=== PATIENT | female | born 1950 ===

== ENCOUNTER 2020-02-01 14:03 | Outpatient (CLI) | payer MEDICARE, BC ==
--- NOTE | 2020-02-07 08:42 | Ultrasound Report ---
LIMITED ULTRASOUND OF RIGHT BREAST: 02/01/2020 CLINICAL: Palpable right breast lump. Comparison is made to exam dated: 02/01/2020 mammogram - [facility]. Color flow and real-time ultrasound of the right breast 9 o'clock region were performed. Diop scale images of the real-time examination were reviewed. No significant abnormalities were seen sonographically in the right breast. IMPRESSION: NEGATIVE There is no sonographic evidence of malignancy. A 1 year screening mammogram is recommended. This exam was interpreted at Station ID: [id number]. Electronically Signed By: Prashanth Cano M.D., jr/cathy:02/01/2020 16:00:42 Ultrasound BI-RADS: 1 Negative BI-RADS CATEGORY: (1) - 1 RECOMMENDATION: (ANNUAL) - Recommend routine annual screening mammography. [id number] 1 year screening LATERALITY: (B)
--- NOTE | 2020-02-07 08:42 | Mammography Report ---
BILATERAL DIGITAL DIAGNOSTIC MAMMOGRAM 3D/2D: 02/01/2020 CLINICAL: Palpable right breast lump. Personal history of right breast cancer, due for bilateral exam . Additional films were requested but not obtained. The tissue of both breasts is predominantly fatty. No significant masses, calcifications, or other findings are seen in either breast. IMPRESSION: INCOMPLETE: NEED PRIOR STUDIES FOR COMPARISON No suspicious finding or significant change. Ultrasound will be performed to evaluate the palpable re gion of concern. This exam was interpreted at Station ID: [id number]. NOTE: For mammograms, a report in lay terms will be sent to the patient. Approximately 15% of breast malignancies will not be visualized mammographically. In the management of a palpable breast mass, a negative mammogram must not discourage biopsy of a clinically suspicious lesion. Electronically Signed By: Prashanth Cano M.D. jr/:02/01/2020 15:53:45 ACR BI-RADS Category 0 Need prior studies for comparison [id number] PARENCHYMAL PATTERN: (F) - The breast(s) demonstrate(s) diffuse fatty replacement. BI-RADS CATEGORY: (0) - 0 Ultrasound [id number] Immediate follow-up LATERALITY: (B)
== END 2020-02-01 14:04 | disposition home or self-care (01) ==
LOC: DI 14:03
PROVIDERS: ATTEND Internal Medicine
DX: Z12.31 Encounter for screening mammogram for malignant neoplasm of breast (principal); N63.10 Unspecified lump in the right breast, unspecified quadrant; Z08 Encounter for follow-up examination after completed treatment for malignant neoplasm; Z85.3 Personal history of malignant neoplasm of breast
CPT/HCPCS: 76642; 77066

== ENCOUNTER 2020-05-29 10:26 | Outpatient (CLI) | payer MEDICARE, BC | END 2020-05-29 10:27 | disposition home or self-care (01) | LOC: DI 10:26 | PROVIDERS: ATTEND Internal Medicine | DX: I48.92 Unspecified atrial flutter (principal); I08.1 Rheumatic disorders of both mitral and tricuspid valves | CPT/HCPCS: 93306 ==

== ENCOUNTER 2020-06-06 09:11 | Outpatient (CLI) | payer MEDICARE, BC ==
--- NOTE | 2020-06-06 15:22 | Ultrasound Report ---
PROCEDURE: Abdomen Limited INDICATIONS: ELEVATED LFT'S TECHNIQUE: Real-time scanning was performed of the abdominal and retroperitoneal organs, with image documentatio n. COMPARISON: None. FINDINGS: Liver: Liver is normal in size and images mild steatosis. Gallbladder: Doppler demonstrate no stones. Wall thickness is within normal limits measuring 2.1 mm. Biliary ducts: Intrahepatic bile ducts are non-dilated. Extrahepatic bile duct caliber measures 1.9 mm. Normal is 6-7 mm or less in diameter, or 10 mm or less post-cholecystectomy. Pancreas: Visualized portions of the pancreas are sonographically normal. Kidneys: Right kidney measures 9.7 cm long. No hydronephrosis or nephrolithiasis. No solid masses. IVC: Intrahepatic inferior vena cava is patent. IMPRESSION: Hepatic steatosis without focal lesion. Reviewed by: Jessica Ellis MD on 06/06/2020 3:21 PM PST Approved by: Jessica Ellis MD on 06/06/2020 3:[address] [facility] Station ID: [id number]
== END 2020-06-06 09:12 | disposition home or self-care (01) ==
LOC: DI 09:11
PROVIDERS: ATTEND Internal Medicine
DX: R74.8 Abnormal levels of other serum enzymes (principal); K76.0 Fatty (change of) liver, not elsewhere classified

== ENCOUNTER 2020-09-27 16:22 | Outpatient (CLI) | payer MEDICARE, BC ==
--- NOTE | 2020-09-28 19:15 | Ultrasound Report ---
PROCEDURE: Head or Neck Soft Tissue INDICATIONS: THYROID NODULE TECHNIQUE: Real-time scanning was performed of the thyroid gland, with image documentation. COMPARISON: None FINDINGS: Right: Thyroid lobe measures 5.2 x 1.7 x 1.4 cm, and is homogenous in echotexture. Left: Thyroid lobe measures 5.5 x 1.9 x 2.2 cm, and is homogenous in echotexture. Isthmus: 9 mm thick. Nodule number: One Location: Isthmus inferiorly Size: 1.3 x 1.0 x 1.4 cm. Composition: Solid Echogenicity: Isoechoic Shape: wider than tall. Margins: Smooth Echogenic foci: None Total points: 3 ACR TI-RADS category: 3 Nodule number: Two Location: Left superior medial Size: 1.5 x 1.1 x 1.5 cm. Composition: Solid Echogenicity: Isoechoic Shape: wider than tall. Margins: smooth Echogenic foci: None Total points: 3 ACR TI-RADS category: 3 Nodule number: Three Location: Left mid Size: 1.5 x 1.3 x 1.5 cm. Composition: Solid Echogenicity: Markedly hypoechoic Shape: wider than tall. Margins: Smooth Echogenic foci: None Total points: 5 ACR TI-RADS category: 4 Nodule number: Four Location: Left inferior Size: 2.5 x 1.9 x 1.9 cm. Composition: Solid Echogenicity: Hypoechoic Shape: wider than tall. Margins: Smooth Echogenic foci: None Total points: 4 ACR TI-RADS category: 4 IMPRESSION: Multinodular goiter. 2 left-sided thyroid nodules meet criteria for fine needle aspiration as below. ACR TI-RADS definitions and recommendations: TI-RADS 1 (benign): 0 points. FNA not needed. TI-RADS 2 (not suspicious): 2 points. FNA not needed. TI-RADS 3 (mildly suspicious): 3 points. ? FNA if 2.5 cm or larger, follow up if 1.5 cm or larger (at 1, 3, and 5 years). TI-RADS 4 (moderately suspicious): 4-6 points. ? FNA if 1.5 cm or larger, follow up if 1 cm or larger (at 1, 2, 3, and 5 years). TI-RADS 5 (highly suspicious): 7 points or more. ? FNA if 1 cm or larger, follow up if 0.5 cm or larger (every year for 5 years). Reviewed by: Shayne Reardon DO on 09/28/2020 6:14 PM [facility] Approved by: Shayne Reardon DO on 09/28/2020 6:14 PM [facility] Station ID: [id number]
== END 2020-09-27 16:23 | disposition home or self-care (01) ==
LOC: DI 16:22
PROVIDERS: ATTEND Internal Medicine
DX: E04.2 Nontoxic multinodular goiter (principal)

== ENCOUNTER 2020-10-21 13:54 | Outpatient (CLI) | payer MEDICARE, BC ==
[~2020-10-21 13:54] MED LIST: BUFFERED LIDOCAINE 10 ML SYRINGE ONE
--- NOTE | 2020-10-21 16:42 | Ultrasound Report ---
PROCEDURE: FNA Bx w/US Gdn Ea Addl INDICATIONS: THYROID NODULES-FNA X2 TECHNIQUE: The indications, alternatives, benefits, risks, and complications of the procedure were explained to the patient. Written informed consent was obtained and placed in the chart. The area of interest wa s examined sonographically and a site was chosen for ultrasound guided percutaneous sampling. The sk in was prepared and draped in the usual fashion, and anesthetized with 1% lidocaine infiltrated from the skin down to the lesion. Multiple passes were then performed, [facility] A bandage was applied to the area of access at completion of t he study. COMPARISON: None. FINDINGS: Location(s) of lesion(s) sampled: Left mid thyroid lobe medial nodule [place]: 25 gauge hypodermic needles. Number of passes: 3 Medications: 1% lidocaine for local anaesthesia. Complications: None. IMPRESSION: Successful ultrasound-guided left thyroid lobe nodule fine needle aspiration, with cytology results p ending. Reviewed by: Prashanth Cano MD on 10/21/2020 4:41 PM PDT Approved by: Prashanth Cano MD on 10/21/2020 4:41 PM PDT Station ID: [id number]
--- NOTE | 2020-10-21 16:43 | Ultrasound Report ---
PROCEDURE: FNA Bx w/US Gnd 1st les INDICATIONS: TWO THYROID NODULES TECHNIQUE: The indications, alternatives, benefits, risks, and complications of the procedure were explained to the patient. Written informed consent was obtained and placed in the chart. The area of interest wa s examined sonographically and a site was chosen for ultrasound guided percutaneous sampling. The sk in was prepared and draped in the usual fashion, and anesthetized with 1% lidocaine infiltrated from the skin down to the lesion. Multiple passes were then performed, with contents emptied into an appr [facility] pathology specimen container. A bandage was applied to the area of access at completion of t he study. COMPARISON: None. FINDINGS: Location(s) of lesion(s) sampled: Superior left thyroid lobe nodule [place]: 25 gauge hypodermic needles. Number of passes: 3 Medications: 1% lidocaine for local anaesthesia. Complications: None. IMPRESSION: Successful ultrasound-guided superior left thyroid lobe nodule fine needle aspiration, with cytology results pending. Reviewed by: Prashanth Cano MD on 10/21/2020 4:41 PM PDT Approved by: Prashanth Cano MD on 10/21/2020 4:41 PM PDT Station ID: [id number]
[2020-10-21] MEDS ORDERED: BUFFERED LIDOCAINE 10 ML SYRINGE IU ONE (16:53)
== END 2020-10-21 13:55 | disposition home or self-care (01) ==
LOC: DI 13:54
PROVIDERS: ATTEND Internal Medicine
DX: E04.2 Nontoxic multinodular goiter (principal)
CPT/HCPCS: 10005; 10006

== ENCOUNTER 2021-11-14 08:00 | Outpatient (CLI) | payer MEDICARE, BC ==
[2021-11-14 16:11] LABS: BASOPHILS # (AUTO) 0.1 10^3/uL (0.0-0.1); BASOPHILS % (AUTO) 1.2 %; EOSINOPHILS # (AUTO) 0.1 10^3/uL (0.0-0.7); EOSINOPHILS % (AUTO) 2.2 %; HCT - HEMATOCRIT 42.7 % (37.0-47.0); HGB - HEMOGLOBIN 13.3 g/dL (12.0-16.0); LYMPHOCYTES # (AUTO) 2.3 10^3/uL (1.5-3.5); MEAN CORPUSCULAR HEMOGLOBIN 28.9 pg (27.0-31.0); MEAN CORPUSCULAR HGB CONC 31.1 g/dL (32.0-36.0); MEAN CORPUSCULAR VOLUME 92.6 fL (81.0-99.0); MEAN PLATELET VOLUME 12.2 fL (7.9-10.8); MONOCYTES # (AUTO) 0.7 10^3/uL (0.0-1.0); MONOCYTES % (AUTO) 12.2 %; NEUTROPHILS # (AUTO) 2.6 10^3/uL (1.5-6.6); NEUTROPHILS % (AUTO) 44.2 %; PLT - PLATELET COUNT 171 10^3/uL (130-450); RED BLOOD COUNT 4.61 10^6/uL (4.20-5.40); RED CELL DISTRIBUTION WIDTH 13.6 % (12.0-15.0); WHITE BLOOD COUNT 5.8 x10^3/uL (4.8-10.8)
[2021-11-14 16:24] LABS: ALBUMIN 3.9 g/dL (3.2-5.5); ALBUMIN/GLOBULIN RATIO 1.4 (1.0-2.2); ALKALINE PHOSPHATASE 69 IU/L (42-121); ALT ALANINE AMINOTRANSFERASE 31 IU/L (10-60); AST ASPARTATE AMINOTRANSFERASE 27 IU/L (10-42); BILIRUBIN,TOTAL 0.6 mg/dL (0.2-1.0); BUN - BLOOD UREA NITROGEN 13 mg/dL (6-20); CALCIUM 9.4 mg/dL (8.5-10.3); CARBON DIOXIDE - CO2 28 mmol/L (21-32); CHLORIDE 104 mmol/L (101-111); CHOLESTEROL 227 mg/dL; CREATININE 0.7 mg/dL (0.4-1.0); GFR - MDRD 83 (>89); GLUCOSE 83 mg/dL (70-100); HDL CHOLESTEROL 57 mg/dL; LDL CHOLESTEROL,CALCULATED 158 mg/dL; LDL/HDL RATIO 2.8 (<4.4); POTASSIUM 4.1 mmol/L (3.5-5.0); SODIUM 141 mmol/L (135-145); TOTAL PROTEIN 6.6 g/dL (6.7-8.2); TRIGLYCERIDES 61 mg/dL; URIC ACID 4.8 mg/dL (2.6-7.2); VLDL CHOLESTEROL 12 mg/dL
== END 2021-11-14 08:01 | disposition home or self-care (01) ==
LOC: LAB.R 08:00
PROVIDERS: ATTEND Internal Medicine
DX: Z00.00 Encounter for general adult medical examination without abnormal findings (principal); I48.92 Unspecified atrial flutter; R74.8 Abnormal levels of other serum enzymes; Z83.3 Family history of diabetes mellitus; K76.0 Fatty (change of) liver, not elsewhere classified; C50.919 Malignant neoplasm of unspecified site of unspecified female breast; E78.5 Hyperlipidemia, unspecified; I34.0 Nonrheumatic mitral (valve) insufficiency; M85.80 Other specified disorders of bone density and structure, unspecified site
CPT/HCPCS: 80053; 80061; 83036; 83721; 84443; 84550; 85025

== ENCOUNTER 2022-10-13 15:27 | Outpatient (CLI) | payer MEDICARE, BC | END 2022-10-13 15:28 | disposition home or self-care (01) | LOC: LAB 15:27 | PROVIDERS: ATTEND Internal Medicine | DX: Z01.818 Encounter for other preprocedural examination (principal) | CPT/HCPCS: 87640 ==

== ENCOUNTER 2023-03-03 12:48 | Outpatient (CLI) | payer MEDICARE, BC ==
--- NOTE | 2023-03-03 18:57 | Ultrasound Report ---
PROCEDURE: Head or Neck Soft Tissue INDICATIONS: THYROID NODULE TECHNIQUE: Real-time scanning was performed of the thyroid gland, with image documentation. COMPARISON: 09/27/2020 FINDINGS: Right: Thyroid lobe measures 4.9 x 2.0 x 1.3 cm, and is relatively homogeneous in echotexture. Left: Thyroid lobe measures 5.2 x 2.1 x 2.0 cm, and contains multiple nodules Isthmus: 4.3 mm thick. Nodule number: 1 Location: Inferior isthmus Size: 1.6 x 1.2 x 1.4 cm, previously 1.3 x 1.0 x 1.4 cm Composition: Solid (2 points). Echogenicity: Isoechoic (1 point). Shape: wider than tall (0 points).. Margins: Smooth (0 points). Echogenic foci: None (0 points). Total points: 3 ACR TI-RADS category: TI-RADS 3: Mildly suspicious. Nodule number: 2 Location: Left upper pole Size: 2.2 x 1.1 x 1.6 cm, previously 1.5 x 1.1 x 1.5 cm. Composition: Solid (2 points). Echogenicity: Isoechoic (1 point). Shape: wider than tall (0 points).. Margins: Smooth (0 points). Echogenic foci: None (0 points). Total points: 3 ACR TI-RADS category: TI-RADS 3: Mildly suspicious. Nodule number: 3 Location: Left middle pole Size: 0.9 x 0.8 x 0.8 cm, previously 1.5 x 1.3 x 1.5 cm. Composition: Solid (2 points). Echogenicity: Very hypoechoic (3 points). Shape: wider than tall (0 points).. Margins: Smooth (0 points). Echogenic foci: Macrocalcification (1 point). Total points: 6 ACR TI-RADS category: TI-RADS 4: Moderately suspicious. Nodule number: 4 Location: Left lower pole Size: 2.7 x 1.9 x 2.0 cm, previously 2.5 x 1.9 x 1.9 cm. Composition: Solid (2 points). Echogenicity: Hypoechoic (2 points). Shape: wider than tall (0 points). Margins: Smooth (0 points). Echogenic foci: None (0 points). Total points: 4 ACR TI-RADS category: TI-RADS 4: Moderately suspicious. IMPRESSION: Multinodular thyroid. Based on the recommendations below, currently, nodule 4 satisfies criteria for ultrasound-guided FNA for tissue diagnosis. It is noted that the patient previously unde rwent ultrasound-guided FNA of this lesion on 10/21/2020. If there is a definite diagnosis of benign ti ssue, it does not require biopsy. If last biopsy was nondiagnostic, consider repeat FNA. ACR TI-RADS definitions and recommendations: TI-RADS 1 (benign): 0 points. FNA not needed. TI-RADS 2 (not suspicious): 2 points. FNA not needed. TI-RADS 3 (mildly suspicious): 3 points. "FNA if 2.5 cm or larger, follow up if 1.5 cm or larger (at 1, 3, and 5 years). TI-RADS 4 (moderately suspicious): 4-6 points. "FNA if 1.5 cm or larger, follow up if 1 cm or larger (at 1, 2, 3, and 5 years). TI-RADS 5 (highly suspicious): 7 points or more. "FNA if 1 cm or larger, follow up if 0.5 cm or larger (every year for 5 years). Reviewed by: Kaleb Gordon MD on 03/03/2023 6:49 PM PDT Approved by: Kaleb Gordon MD on 03/03/2023 6:49 PM PDT Station ID: [id number]
== END 2023-03-03 12:49 | disposition home or self-care (01) ==
LOC: DI 12:48
PROVIDERS: ATTEND Internal Medicine
DX: E04.2 Nontoxic multinodular goiter (principal)

== ENCOUNTER 2023-04-15 09:27 | Day surgery (SDC) | payer MEDICARE, BC ==
[2023-04-15] MEDS ORDERED: PROPOFOL 500 MG/50 ML 500 MG/50 ML VIAL IV ONE (09:28)
[2023-04-15] MEDS ORDERED: LACTATED RINGERS 1,000 ML IV ONE (09:56)
--- NOTE | 2023-04-15 10:28 | ANESTHESIA ---
Pre-Anesthesia VS, & Labs - Diagnosis screening - Procedure colonoscopy Vital Signs: Temp Pulse Resp BP Pulse Ox O2 Flow Rate 36.8 C 92 12 124/92 H 100 04/15/23 10:14 04/15/23 10:14 04/15/23 10:14 04/15/23 10:14 04/15/23 10:14 Height: 5 ft 2 in Weight (kg): 67.3 kg Body Mass Index: 27.1 BMI Classification: Overweight - NPO Other (prep as directed) - Is Patient ?: No Home Medications and Allergies Home Medications: Ambulatory Orders Letrozole 1 tab PO DAILY 04/14/23 Letrozole 1 tab PO DAILY 04/14/23 Allergies/Adverse Reactions: Allergies Allergy/AdvReac Type Severity Reaction Status Date / Time nickel AdvReac Rash Verified 04/14/23 12:37 Anes History & Medical History - Anesthetic History Anesthesia Complications: reports: No previous complications - Medical History Cardiovascular: reports: High cholesterol, Atrial flutter, Arrhythmia Pulmonary: reports: Other Gastrointestinal: reports: Other Urinary: reports: None Musculoskeletal: reports: Osteopenia Endocrine/Autoimmune: reports: None Skin: reports: None - Surgical History General: reports: Colonoscopy, Other Cardiothoracic: reports: Valve replacement Gynecologic: reports: Other Exam General: Alert, Oriented x3 Dental: WNL Mallampati classification: II Thyromental Distance: greater than 6 cm Respiratory: Lungs clear Cardiovascular: Regular rate Plan Anesthesia Type: Total IV Consent for Procedure(s) Verified and Reviewed: Yes Code Status: Attempt Resuscitation ASA classification: 3-Severe systemic disease Is this case an emergency?: No
--- NOTE | 2023-04-15 10:29 | HISTORY & PHYSICAL EXAMINATION ---
Chief Complaint - Chief Complaint Chief Complaint: here for colonoscopy History of Present Illness - History Obtained From Records Reviewed: yes History obtained from: pt Exam Limitations: none - History of Present Illness HPI Comment/Other: cologuard positive. no gi symptoms History - Past Medical History Cardiovascular: reports: High cholesterol, Atrial flutter, Arrhythmia Respiratory: reports: Other Endocrine/Autoimmune: reports: None GI: reports: Other : reports: None HEENT: reports: None Psych: reports: None Musculoskeletal: reports: Osteopenia Derm: reports: None MRSA Hx?: No - Past Surgical History General: reports: Colonoscopy, Other /[employer]: reports: Other Cardiovascular: reports: Valve replacement Meds/Allgy - Home Medications Home Medications: Ambulatory Orders Medication Instructions Recorded Confirmed Letrozole 1 tab PO DAILY 04/14/23 04/14/23 - Allergies Allergies/Adverse Reactions: Allergies Allergy/AdvReac Type Severity Reaction Status Date / Time nickel AdvReac Rash Verified 04/14/23 12:37 Exam - Vital Signs Vital Signs: Vital Signs x48h Temp Pulse Resp BP Pulse Ox 04/15/23 10:14 36.8 C 92 12 124/92 H 100 04/15/23 09:56 36.8 C 93 14 124/92 H 100 - Physical Exam General Appearance: positive: No acute distress, Alert Eyes Bilateral: positive: PERRL, EOMI, No scleral icterus ENT: positive: No signs of dehydration Neck: positive: No JVD, Trachea midline Respiratory: positive: No respiratory distress, Breath sounds nml Cardiovascular: positive: Regular rate & rhythm Abdomen: positive: No distention Neurologic/Psychiatric: positive: Oriented x3 Conclusion/Plan - Problem List (1) Abnormal stool test Conclusion/Plan: positive cologuard. plan colonoscopy. parq held and consent obtained
[2023-04-15] MEDS ORDERED: LACTATED RINGERS 400 ML IV ONE (11:20)
[2023-04-15 11:35] VITALS: BP 112/75; O2SAT 99
--- NOTE | 2023-04-15 14:11 | ANESTHESIA POST OP EVALUATION ---
Anesthesia Post Eval - Post Anesthesia Eval Vitals: Last Vital Signs Temp 36.0 C L 04/15/23 11:18 Pulse 73 04/15/23 11:31 Resp 16 04/15/23 11:31 BP 112/75 04/15/23 11:31 Pulse Ox 99 04/15/23 11:31 O2 Flow Rate CV Function Including HR & BP: Stable Pain Control: Satisfactory Nausea & Vomiting: Negative Mental Status: Baseline Respiratory Status: Airway Patent Hydration Status: Satisfactory Anesthesia Complications: None
== END 2023-04-15 09:28 | disposition home or self-care (01) ==
LOC: SDS 09:27
PROVIDERS: ATTEND Surgery
DX: Z12.11 Encounter for screening for malignant neoplasm of colon (principal); R19.5 Other fecal abnormalities; I48.92 Unspecified atrial flutter
CPT/HCPCS: G0121; J7120

== ENCOUNTER 2023-04-16 15:20 | Outpatient (CLI) | payer MEDICARE, BC ==
[2023-04-16] MEDS ORDERED: LIDOCAINE-MPF 1% 5 ML VIAL ONE (15:45)
--- NOTE | 2023-04-16 16:55 | Ultrasound Report ---
PROCEDURE: FNA Bx w/US Gdn 1st Les INDICATIONS: THYROID NODULE TECHNIQUE: The indications, alternatives, benefits, risks, and complications of the procedure were explained to the patient. Written informed consent was obtained and placed in the chart. The area of interest wa s examined sonographically and a site was chosen for ultrasound guided percutaneous sampling. The sk in was prepared and draped in the usual fashion, and anesthetized with 1% lidocaine infiltrated from the skin down to the lesion. Multiple passes were then performed, with contents emptied into an appr [facility] pathology specimen container. A bandage was applied to the area of access at completion of t he study. COMPARISON: None. FINDINGS: Location(s) of lesion(s) sampled: Left thyroid lobe [place]: 25 gauge hypodermic needles. Number of passes: 5 Medications: 1% lidocaine for local anaesthesia. Complications: None. IMPRESSION: Successful ultrasound-guided thyroid fine needle aspiration, with cytology results pending. Reviewed by: Jessica Ellis MD on 04/16/2023 4:54 PM PST Approved by: Jessica Ellis MD on 04/16/2023 4:54 PM PST Station ID: [id number]
== END 2023-04-16 15:21 | disposition home or self-care (01) ==
LOC: DI 15:20
PROVIDERS: ATTEND Internal Medicine
DX: E04.1 Nontoxic single thyroid nodule (principal)
CPT/HCPCS: 10005

== ENCOUNTER 2023-11-27 12:09 | Outpatient (CLI) | payer MEDICARE, BC ==
[2023-11-27 12:50] LABS: BASOPHILS % (AUTO) 0.5 %; EOSINOPHILS % (AUTO) 0.1 %; HCT - HEMATOCRIT 45.6 % (37.0-47.0); HGB - HEMOGLOBIN 14.5 g/dL (12.0-16.0); LYMPHOCYTES # (AUTO) 1.9 10^3/uL (1.5-3.5); LYMPHOCYTES % (AUTO) 26.5 %; MEAN CORPUSCULAR HEMOGLOBIN 28.7 pg (27.0-31.0); MEAN CORPUSCULAR HGB CONC 31.8 g/dL (32.0-36.0); MEAN CORPUSCULAR VOLUME 90.3 fL (81.0-99.0); MEAN PLATELET VOLUME 10.4 fL (7.9-10.8); MONOCYTES # (AUTO) 0.9 10^3/uL (0.0-1.0); MONOCYTES % (AUTO) 12.8 %; NEUTROPHILS # (AUTO) 4.4 10^3/uL (1.5-6.6); NEUTROPHILS % (AUTO) 59.8 %; PLT - PLATELET COUNT 199 10^3/uL (130-450); RED BLOOD COUNT 5.05 10^6/uL (4.20-5.40); WHITE BLOOD COUNT 7.3 x10^3/uL (4.8-10.8)
[2023-11-27 12:59] LABS: ALBUMIN 4.1 g/dL (3.2-5.5); ALBUMIN/GLOBULIN RATIO 1.1 (1.0-2.2); BILIRUBIN,TOTAL 0.8 mg/dL (0.2-1.0); CALCIUM 9.7 mg/dL (8.5-10.3); CREATININE 0.7 mg/dL (0.6-1.3)
== END 2023-11-27 12:10 | disposition home or self-care (01) ==
LOC: LAB 12:09
PROVIDERS: ATTEND Physician Assistant
DX: R10.13 Epigastric pain (principal)
CPT/HCPCS: 36415; 80053; 85025